=== PATIENT | female | born 1950 | race Two or more races ===

== ENCOUNTER 2017-08-24 07:52 | Outpatient (CLI) | payer OTHER ==
[~2017-08-24 07:52] MED LIST: CRESTOR5 MG PO; PLAVIX75 MG PO; VERAPAMIL ER100 MG PO
== END 2017-08-24 08:07 | disposition home or self-care (01) ==
LOC: SONOGRAMA 07:52
DX: N89.8 Other specified noninflammatory disorders of vagina (principal); Z85.89 Personal history of malignant neoplasm of other organs and systems; Z86.72 Personal history of thrombophlebitis; Z86.718 Personal history of other venous thrombosis and embolism

== ENCOUNTER 2021-02-10 07:35 | Outpatient (CLI) | payer OTHER | END 2021-02-10 07:40 | disposition home or self-care (01) | LOC: NUCLEAR 07:35 | PROVIDERS: ATTEND Internal Medicine Cardiovascular Disease | DX: I20.1 Angina pectoris with documented spasm (principal) | CPT/HCPCS: 78452; 93017; A9500; J0153 ==